=== PATIENT | female | born 1960 | race Caucasian/White ===

== ENCOUNTER 2020-10-25 18:41 | Emergency (ER) | payer OTHER ==
[~2020-10-25] VITALS: Ht 162.6 cm; Wt 60.5 kg
--- NOTE | 2020-10-25 19:21 | RAD ---
EXAM: 2 views left shoulder DATE: 10/25/2020 7:01 PM INDICATION: Reason: dislocation / Spl. Instructions: / History: COMPARISON: No Prior FINDINGS/ IMPRESSION: Anterior-inferior dislocation of the left shoulder. Equivocal anterior inferior Bankart type fracture not well profiled given overlap. Electronically signed by: Ash Knox MD (10/25/2020 7:18 PM) RITU
--- NOTE | 2020-10-25 20:14 | PHYS DOC ---
Past Medical History Past Medical History: Hypertension Past Surgical History: Other Additional Past Surgical Histo: RT SHOULDER, SINUS SURG Smoking Status: Never Smoker Alcohol Use: Heavy General Adult EDM: Chief Complaint: SHOULDER INJURY HPI: HPI: Patient is a 60 year old female patient who reports she had reached out to hug her dog when she had felt her shoulder dislocate. States she has had it happen before, it has been out for 2 hours prior to coming to the ER. States some discomfort. Denies paresthesia. Reports she is having some discomfort. Denies additional complaints or concerns. States this is the 4th time this has happened to her. Review of Systems: Review of Systems: Constitutional: Denies fever or chills. [] Cardiovascular: Denies chest pain or edema. [] GI: Denies abdominal pain, nausea, vomiting, bloody stools or diarrhea. [] : Denies dysuria. [] Musculoskeletal: Complains of pain to left shoulder and feeling it out of place [] Integument: Denies rash. [] Psychiatric: Denies depression or anxiety. [] Heart Score: Risk Factors: Risk Factors: DM, Current or recent (<one month) smoker, HTN, HLP, family history of CAD, obesity. Risk Scores: Score 0 - 3: 2.5% MACE over next 6 weeks - Discharge Home Score 4 - 6: 20.3% MACE over next 6 weeks - Admit for Clinical Observation Score 7 - 10: 72.7% MACE over next 6 weeks - Early Invasive Strategies Allergies: Allergies: Allergies Coded Allergies Type Severity Reaction Last Updated Verified No Known Drug Allergies 10/25/20 No Physical Exam: PE: Constitutional: Well developed, well nourished, no acute distress, non-toxic appearance. [] HENT: Normocephalic,oropharynx moist, no oral exudates, nose normal. [] Eyes: PERRLA, EOMI, conjunctiva normal, no discharge. [] Neck: Normal range of motion, no tenderness, supple, no stridor. [] Cardiovascular:Heart rate regular rhythm, no murmur [] Lungs & Thorax: Bilateral breath sounds clear to auscultation [] Skin: Warm, dry, no erythema, no rash. [] Back: No tenderness, no CVA tenderness. [] Extremities: No tenderness, no cyanosis, no clubbing, left shoulder with noted deformity/dislocation. Capillary refill intact, sensation intact, radial pulse intact. [] Neurologic: Alert and oriented X 3, normal motor function, normal sensory function, no focal deficits noted. [] Psychologic: Affect normal, judgement normal, mood normal. [] Current Patient Data: Vital Signs: Vital Signs Date Time Temp Pulse Resp B/P (MAP) Pulse Ox O2 Delivery O2 Flow Rate FiO2 10/25/20 18:45 97.8 77 16 183/118 (139) 97 Room Air 97.8 EKG: EKG: [] Radiology/Procedures: Radiology/Procedures: [] REASON: dislocation PROCEDURE: SHOULDER 2+V LEFT EXAM: 2 views left shoulder DATE: 10/25/2020 7:01 PM INDICATION: Reason: dislocation / Spl. Instructions: / History: COMPARISON: No Prior FINDINGS/ IMPRESSION: Anterior-inferior dislocation of the left shoulder. Equivocal anterior inferior Bankart type fracture not well profiled given overlap. Electronically signed by: Ash Parker MD (10/25/2020 7:18 PM) [facility] DICTATED and SIGNED BY: ASH PARKER MD DATE: 10/25/[id number] 0 Left shoulder 2 views: Reason for examination: Post reduction. Comparison is made to previous examination dated 10/25/2020 at 1908. The left humeral head is normally located at the glenoid. No acute fracture is seen. The bone density is normal. No abnormal periosteal reaction is seen. Joint space is maintained. IMPRESSION: Left humeral head normally located at the glenoid. No acute fracture evident. Electronically signed by: Paty Infante MD (10/25/2020 9:35 PM) [facility] DICTATED and SIGNED BY: PATY INFANTE MD DATE: 10/25/[id number] 0 Course & Med Decision Making: Course & Med Decision Making Pertinent Labs and Imaging studies reviewed. (See chart for details) []Using Ketamine for pain control, reduction of left shoulder dislocation using manipulation. Shoulder immobilizer applied following Post reduction films without fracture and noting shoulder in place. Patient to follow up with Ortho Keep immobilzer in place NSAIDS as needed for discomfort Prior to discharge, patient reporting she feels much better, states shoulder is a little achy. Will keep immobilizer in place and patient to follow up with Ortho. She has seen Ortho in the past for her shoulder, may see [facility] if she chooses. Layla Disclaimer: Layla Disclaimer: This electronic medical record was generated, in whole or in part, using a voice recognition dictation system. Departure Departure Impression: Primary Impression: Dislocation of left shoulder joint Qualified Codes: S43.005A - Unspecified dislocation of left shoulder joint, initial encounter Disposition: 01 DC HOME SELF CARE/HOMELESS Condition: STABLE Referrals: THU LESTER MD Patient Instructions: Shoulder Dislocation, Shoulder Immobilizer Additional Instructions: Follow up in the Orthopedics office to determine if they want to consider other ways to manage your recurring shoulder dislocation. Continue to wear the shoulder immobilizer for the next 7 days or until cleared by Orthopedics to remove it Take Tylenol or Ibuprofen as needed for discomfort Joint Reduction Procedure Joint Indication: Joint dislocation Consent: Consent was obtained. Procedure: The pre-reduction exam showed distal perfusion and neurologic function to be normal.. The patient was placed in the appropriate position. Anesthesia/pain control using Ketamine. Reduction of the Left Shoulder was performed by Manipulation and traction. Post reduction films were obtained and revealed satisfactory reduction. A post-reduction exam revealed distal perfusion and neurologic function to be normal. The affected area was immobilized with shoulder immobilizer The patient tolerated the procedure well. Complications: none. AME RAWLS APRN Oct 25, 2020 20:14
[2020-10-25] MEDS ORDERED: IV NORMAL SALINE 1000ML BAG 1,000 ML IV ONE (21:00)
[2020-10-25] MEDS ORDERED: ONDANSETRON PF 4 MG/2 ML VIAL. IV ONE (21:00)
[2020-10-25] MEDS ORDERED: KETAMINE HCL IN NACL, ISO-OSM 50 MG/5 ML SYRINGE IV ONE ×2 (21:00→22:00)
--- NOTE | 2020-10-25 21:38 | RAD ---
Left shoulder 2 views: Reason for examination: Post reduction. Comparison is made to previous examination dated 10/25/2020 at 1908. The left humeral head is normally located at the glenoid. No acute fracture is seen. The bone density is normal. No abnormal periosteal reaction is seen. Joint space is maintained. IMPRESSION: Left humeral head normally located at the glenoid. No acute fracture evident. Electronically signed by: Ayana Stallings MD (10/25/2020 9:35 PM) RHONDA
[2020-10-25 22:25] VITALS: BP 155/120
== END 2020-10-25 22:25 | disposition home or self-care (01) ==
LOC: ER 18:41
DX: S43.005A Unspecified dislocation of left shoulder joint, initial encounter (principal); I10 Essential (primary) hypertension; X58.XXXA Exposure to other specified factors, initial encounter; Y93.89 Activity, other specified; Y92.89 Other specified places as the place of occurrence of the external cause; Y99.8 Other external cause status
CPT/HCPCS: 23650; 73030; 96374; 99285; J2405; J7030; 96375; 96376

== ENCOUNTER → 2020-12-19 | Outpatient (CLI) | payer OTHER ==
[~2020-12-19] MED LIST: GADOTERATE 5 MMOL/10ML VIAL. INT ART ONE; IOHEXOL 300 MG/ML 50 ML VIAL. INT ART ONE; LIDOCAINE 1% Multi-Dose 20 ML VIAL. ID ONE
--- NOTE | 2020-12-19 15:26 | KCIC ---
EXAM: Left shoulder joint injection WITH Fluoroscopic guidance DATE: 12/19/2020 12:52 PM CLINICAL HISTORY: RECURRENT DISLOCATIONS OF LEFT SHOULDER COMPARISON: None pertinent TECHNIQUE: The patient was informed of the indications and alternatives for this procedure as well as risks and benefits. No immediate contraindication identified. The patient provided informed, written consent. Laterality was confirmed by the entire team following a time out. Following initial left shoulder joint localization, a suitable area was sterilely prepped and draped. Local anesthesia was administered with 1% xylocaine. With intermittent fluoroscopic observation, a 2 2-gauge spinal needle was advanced into the left shoulder sheath/capsule with confirmation of intra-s ynovial position with infusion of less than 1 cc iodinated contrast. Subsequent infusion 12 mL soluti on containing 10 cc saline, 5 cc lidocaine 1%, 5 cc Isovue and 0.1 cc gadolinium. Hemostasis with loc al pressure. Local clinical exam negative for immediate complication. Patient informed re local potential signs or symptoms that may indicate need to return to ER/Ordering physician for further evaluation. Patient informed re precautionary measures after intra-synovial in jection of anesthetic. Patient expressed understanding. Performing Physicians: Dr. Martina Knox Blood Loss: 0 cc Total Fluoroscopy time: 7 seconds Total spot images taken: 0 Total number of images saved: 2 IMPRESSION: Successful intra-synovial injection of the left shoulder with gadolinium contrast per clinical reque st. Electronically signed by: Ash Knox MD (12/19/2020 3:24 PM) [id number]
--- NOTE | 2020-12-19 15:37 | KCIC ---
EXAM: MRI arthrogram Left shoulder DATE: 12/19/2020 1:48 PM COMPARISON: None INDICATION: RECURRENT DISLOCATIONS OF LEFT SHOULDER TECHNIQUE: Multiplanar, multisequence MRI arthrogram of the Left shoulder was performed without contr ast. FINDINGS: Iatrogenic distention of the left glenohumeral joint with gadolinium contrast. No significant subacro mial-subdeltoid bursal fluid. AC joint is congruent. No os acromiale. Partial-thickness articular sided tear of the supraspinatus tendon measures approximately 1.5 cm in A P dimension, approximately 50 percent tendon thickness. The rotator cuff is otherwise intact. Rotator cuff muscle signal and bulk is normal without fatty atrophy. Hill-Sachs deformity is seen. Mild deformity of the anterior-inferior labrum although discrete tear i s not identified. In addition contrast is seen extending through the labral-chondral junction within the superior and posterior superior labrum consistent with SLAP tear from approximately the 12:00 pos ition to the 9:00 position. No fracture or osteonecrosis. Articular cartilage is grossly preserved. Intra-articular and extra-art icular long head biceps tendon are intact. IMPRESSION: 1. SLAP tear is suspected from the 12:00-9:00 position. 2. Partial-thickness articular sided tear of the anteriormost fibers of the supraspinatus tendon. 3. Deformity of the anterior-inferior labrum without discrete anterior-inferior labral tear. 4. Hill-Sachs deformity is seen from prior shoulder dislocation. Electronically signed by: Ash Knox MD (12/19/2020 3:35 PM) [id number] Custom Field 1 Laterality
== END | disposition home or self-care (01) ==
LOC: KCIC 12:39
PROVIDERS: ATTEND Orthopaedic Surgery
DX: M24.412 Recurrent dislocation, left shoulder (principal); M24.112 Other articular cartilage disorders, left shoulder; S43.432A Superior glenoid labrum lesion of left shoulder, initial encounter; S42.292A Other displaced fracture of upper end of left humerus, initial encounter for closed fracture; X58.XXXA Exposure to other specified factors, initial encounter; Y93.89 Activity, other specified; Y92.89 Other specified places as the place of occurrence of the external cause; Y99.8 Other external cause status
CPT/HCPCS: 23350; 73222; 77002; A9575; J3490; Q9967; 73040

== ENCOUNTER → 2021-01-10 | Outpatient (CLI) | payer OTHER ==
[~2021-01-10] MED LIST changes: +AMLO-187 PO; +FISH400C4 PO; -GADOTERATE 5 MMOL/10ML VIAL. INT ART ONE; +IBUP-1027 PO; -IOHEXOL 300 MG/ML 50 ML VIAL. INT ART ONE; -LIDOCAINE 1% Multi-Dose 20 ML VIAL. ID ONE; +MULT-121 PO; +[UNRECOGNIZED DRUG - OTHER] PO
== END ==
LOC: LAB 09:40
PROVIDERS: ATTEND Orthopaedic Surgery
DX: Z01.812 Encounter for preprocedural laboratory examination (principal); S43.432A Superior glenoid labrum lesion of left shoulder, initial encounter; M24.412 Recurrent dislocation, left shoulder; Z20.822 Contact with and (suspected) exposure to COVID-19; X58.XXXA Exposure to other specified factors, initial encounter; Y93.89 Activity, other specified; Y92.89 Other specified places as the place of occurrence of the external cause; Y99.8 Other external cause status
CPT/HCPCS: U0003

== ENCOUNTER 2021-01-13 07:09 | Day surgery (SDC) | payer OTHER ==
[~2021-01-13] VITALS: Ht 160 cm; Wt 63.5 kg
[~2021-01-13 07:09] MED LIST changes: +HYDROmorphone 2 MG/ML VIAL IVP PRN; +IV RINGERS,LACTATED 1000ML 1,000 ML IV SCH; +MORPHINE SULFATE 2 MG/ML VIAL. IVP PRN; +PROCHLORPERAZINE 10 MG/2 ML VIAL. IVP PRN; +ceFAZolin SODIUM IV Push 1 GM VIAL. IVP PRN; +fentaNYL PF VIAL 100 MCG/2 ML VIAL IVP PRN
[2021-01-13] MEDS ORDERED: ROCURONIUM 50 MG/5 ML VIAL. ONE (07:34)
[2021-01-13] MEDS ORDERED: PROPOFOL 10 MG/ML (20ML) VIAL. IV ONE (07:34)
[2021-01-13] MEDS ORDERED: LIDOCAINE 2% PF 5 ML VIAL. ONE (07:34)
[2021-01-13] MEDS ORDERED: fentaNYL PF VIAL 100 MCG/2 ML VIAL ONE ×2 (07:34→09:00)
--- NOTE | 2021-01-13 08:07 | PDOC1 ---
History and Physical Date of Admission Date of Admission DATE: 01/13/21 TIME: 08:01 Identification/Chief Complaint Chief Complaint Left shoulder recurrent dislocation. Source Source: Chart review, Patient History of Present Illness History of Present Illness 60-year-old with left shoulder pain. 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 History of left frozen shoulder with manipulation with Dr. Villatoro about 10 years ago. Following this, she had some type of complication from her frozen shoulder as her scapula was deformed; this took 2 years of physical therapy. Eventually, she healed to 100% and regained motion without any dislocations. However, she has began dislocating over the past 1.5 years (first episode throwing the ball for her dog where she self reduced). She has followed up with other physicians, including one in [place] (Dr. Schreiber?), who ordered a test (possible MRI with contrast?) and prescribed physical therapy about 8 months ago. Patient did fine until October of this year. She was seen in the ED on 10/25/20 for a left shoulder dislocation after reaching down to hug her dog. She was reduced in the ER, given an immobilizer, and instructed to follow up with me. Of note, her shoulder was dislocated for about 3 hours before her reduction. She was also given ketamine during her reduction and this was very scary for her. This was her 4th episode of dislocation over the past 1.5 years and she has previously followed up with [facility], among others, for her shoulder. Now, she notes aching and pain in her shoulder, worse at night. MRI shows SLAP tear from the 12:00-9:00 position, partial-thickness articular sided tear of the anteriormost fibers of the supraspinatus tendon, deformity of the anterior-inferior labrum without discrete anterior-inferior labral tear, and Hill-Sachs deformity is seen from prior shoulder dislocation. Past Medical History Cardiovascular: HTN Past Surgical History Past Surgical History Shoulder manipulation. Sinus surgery. Family History Family History: Hypertension Social History Smoke: Quit ALCOHOL: occassional Current Medications Current Medications Current Medications Fentanyl Citrate (Fentanyl 2ml Vial) 25 mcg PRN Q5MIN PRN IVP MILD PAIN 1-3; Start 01/13/21 at 06:00; Stop 01/14/21 at 05:59 Fentanyl Citrate (Fentanyl 2ml Vial) 50 mcg PRN Q5MIN PRN IVP MODERATE PAIN 4- 6; Start 01/13/21 at 06:00; Stop 01/14/21 at 05:59 Morphine Sulfate (Morphine Sulfate) 1 mg PRN Q10MIN PRN IVP SEVERE PAIN 7-10; Start 01/13/21 at 06:00; Stop 01/14/21 at 05:59 Ringer's Solution 1,000 ml @ 30 mls/hr Q24H IV ; Start 01/13/21 at 06:00; Stop 01/13/21 at 17:59 Hydromorphone HCl (Dilaudid) 0.5 mg PRN Q10MIN PRN IVP SEVERE PAIN 7-10, 2nd CHOICE; Start 01/13/21 at 06:00; Stop 01/14/21 at 05:59 Prochlorperazine Edisylate (Compazine) 5 mg PACU PRN PRN IVP NAUSEA, MRX1; Start 01/13/21 at 06:00; Stop 01/14/21 at 05:59 Cefazolin Sodium (Ancef) 1 gm 1X PREOP PRN IVP PRIOR TO PROCEDURE; Start at 06:00 Fentanyl Citrate (Fentanyl 2ml Vial) 100 mcg STK-MED ONCE .ROUTE ; Start 01/13/21 at 07:34; Stop 01/13/21 at 07:35; Status DC Propofol (Diprivan) 200 mg STK-MED ONCE IV ; Start 01/13/21 at 07:34; Stop 01/13/21 at 07:35; Status DC Lidocaine HCl (Lidocaine Pf 2% Vial) 5 ml STK-MED ONCE .ROUTE ; Start 01/13/21 at 07:34; Stop 01/13/21 at 07:35; Status DC Rocuronium Hamilton (Zemuron) 50 mg STK-MED ONCE .ROUTE ; Start 01/13/21 at 07:34; Stop 01/13/21 at 07:35; Status DC Cefazolin Sodium/ Dextrose 50 ml @ As Directed STK-MED ONCE IV ; Start 01/13/21 at 07:35; Stop 01/13/21 at 07:35; Status DC Active Scripts Active Reported [Super Red Supplement] 1 Cap PO DAILY [place] 3-6-9 Complex Softgel (Fish Oil/Borage/Flax/Om3,6,9#1) 400 Mg Capsule 1 Cap PO DAILY 30 Days Multiple Vitamins (Multivitamin) 1 Each Tablet 1 Each PO DAILY Ibuprofen 400 Mg Tablet 400 Mg PO PRN Q6HRS PRN Amlodipine Besylate 10 Mg Tablet 10 Mg PO HS Allergies Allergies: Coded Allergies: ketamine (Verified Adverse Reaction, Intermediate, 01/12/21) "FREAKED OUT!" DOESNT WANT TO RECEIVE AGAIN ROS Review of System OPHTHALMOLOGY: Blurred vision none. Double vision denies. Change in vision none. ENT: Hearing loss none. Change in voice denies. Rhinorrhea none. CARDIOLOGY: Palpitations none. Shortness of breath denies. Chest pain denies. CONSTITUTIONAL: Fever denies. Chills denies. Weight gain denies. Weakness none. weight loss denies. Fatigue none. GASTROENTEROLOGY: Diarrhea denies. Vomiting none. Dysphagia none. UROLOGY: Voiding normally yes. Hematuria none. MUSCULOSKELETAL: Chronic back or neck pain denies. Swelling of the feet, hands, ankles and /or legs denies. Joint pain admits. Tingling/numbness no. DERMATOLOGY: Rash denies. Lumps none. NEUROLOGY: Dizziness/lightheadedness denies. Double vision, temporary blindness denies. Tingling/numbness none. PSYCHOLOGY: Change in mood or personality denies. Memory loss none. ENDOCRINOLOGY: Obesity denies. Fatigue none. Weight loss none. HEMATOLOGY/LYMPH: Hepatitis denies. Enlarged lymph nodes denies. Physical Exam General: Alert, Cooperative HEENT: Atraumatic Lungs: Normal air movement Abdomen: Soft Extremities: No edema, Normal pulses, Other ( Gross alignment of the LEFT shoulder is normal. Strength is 5/5 for the supraspinatus and infraspinatus. No apparent hypermobility or generalized ligamentous laxity of her other joints. Anterior instability on apprehension and relocation testing. Slight inferior instability. No posterior instability. Range of motion is 120/170/50/L2 (cautious to prevent any dislocation). Skin, pulses, and sensation normal. ) Skin: No breakdown, No significant lesion Neuro: Sensation intact Psych/Mental Status: Mental status NL, Mood NL Images Images [facility] [address] [place] [address] IMAGING REPORT Signed PATIENT: CHEIKH BURTON ACCOUNT: [id number] : 1960 LOCATION: [facility] AGE: 60 SEX: F EXAM STATUS: REG CLI ORD. PHYSICIAN: THU LESTER MD REASON: RECURRENT DISLOCATIONS OF LEFT SHOULDER PROCEDURE: UPPER EXT JOINT W CONT LEFT EXAM: MRI arthrogram Left shoulder DATE: 12/19/2020 1:48 PM COMPARISON: None INDICATION: RECURRENT DISLOCATIONS OF LEFT SHOULDER TECHNIQUE: Multiplanar, multisequence MRI arthrogram of the Left shoulder was performed without contrast. FINDINGS: Iatrogenic distention of the left glenohumeral joint with gadolinium contrast. No significant subacromial-subdeltoid bursal fluid. AC joint is congruent. No os acromiale. Partial-thickness articular sided tear of the supraspinatus tendon measures approximately 1.5 cm in AP dimension, approximately 50 percent tendon thickness. The rotator cuff is otherwise intact. Rotator cuff muscle signal and bulk is normal without fatty atrophy. Hill-Sachs deformity is seen. Mild deformity of the anterior-inferior labrum although discrete tear is not identified. In addition contrast is seen extending through the labral-c hondral junction within the superior and posterior superior labrum consistent with SLAP tear from approximately the 12:00 position to the 9:00 position. No fracture or osteonecrosis. Articular cartilage is grossly preserved. Intra- articular and extra- articular long head biceps tendon are intact. IMPRESSION: 1. SLAP tear is suspected from the 12:00-9:00 position. 2. Partial-thickness articular sided tear of the anteriormost fibers of the supraspinatus tendon. 3. Deformity of the anterior-inferior labrum without discrete anterior- inferior labral tear. 4. Hill-Sachs deformity is seen from prior shoulder dislocation. Electronically signed by: Ash Parker MD (12/19/2020 3:35 PM) [id number] Custom Field 1 Laterality DICTATED and SIGNED BY: ASH PARKER MD DATE: 12/19/20 1524 VTE Prophylaxis Ordered VTE Prophylaxis Devices: Yes VTE Pharmacological Prophylaxi: Yes Assessment/Plan Assessment/Plan Her MRI shows a SLAP tear as well as a partial supraspinatus tear. We reviewed her report together and discussed the natural history of the condition as well as risks, benefits, and alternatives to treatment. Given her failure of more conservative measures with continued recurrent dislocations, my recommendation is surgery. Plan for left shoulder arthroscopy with SLAP repair, rotator cuff repair, and subacromial decompression. We discussed the potential risks of infection, neurovascular injury, fracture, bleeding, need for revision surgery, or other potential surgical or anesthetic complications. We also discussed healing expectations including postoperative use of DonJoy sling, need for physical therapy, and refrain from overhead lifting for 3 months. In addition, I described that this is a more difficult surgery for patients and may take up to a year to heal; furthermore, I impressed the possibility of postoperative stiffness after undergoing these two procedures. All of her questions were answered and she desires to proceed with surgery. Justifications for Admission Other Justification THU LESTER MD Jan 13, 2021 08:07
[2021-01-13] MEDS ORDERED: BUPIVACAINE-EPI 0.25% 30 ML VIAL KIT. ONE (08:13)
[2021-01-13] MEDS ORDERED: EPINEPHrine VIAL 30 MG/30 ML VIAL ONE (08:13)
[2021-01-13] MEDS ORDERED: DEXAMETHASONE SOD PHOS 4 MG/ML VIAL ONE (08:59)
[2021-01-13] MEDS ORDERED: SEVOFLURANE 61 TO 120 MINUTES. IH ONE (09:00)
[2021-01-13] MEDS ORDERED: ceFAZolin SODIUM IV Push 1 GM VIAL. IVP ONE (09:15)
[2021-01-13] MEDS ORDERED: HYDROmorphone 2 MG/ML VIAL ONE (09:22)
[2021-01-13] MEDS ORDERED: GLYCOPYRROLATE 1 MG/5 ML VIAL. ONE (10:58)
[2021-01-13] MEDS ORDERED: NEOSTIGMINE METHYLSULFATE 5 MG/5 ML SYRINGE. ONE (10:58)
--- NOTE | 2021-01-13 11:55 | PDOC4 ---
Operative Note Operative Note Date of Procedure: January 13, 2021 Pre-Op Diagnosis: 1. Recurrent dislocation, left shoulder - M24.412 2. Incomplete rotator cuff tear or rupture of left shoulder, not specified as traumatic - M75.112 Post-Op Diagnosis: 1. Recurrent dislocation, left shoulder - M24.412 2. Incomplete rotator cuff tear or rupture of left shoulder, not specified as traumatic - M75.112 Procedure: 1. Left shoulder arthroscopy with surgical capsulorrhaphy (arthroscopic Bankart repair) CPT 49876 2. Left shoulder repair of ruptured musculotendinous cuff (open rotator cuff repair), open and acute CPT 86923 Surgeon: Thu Byrd MD Head Turning Machine Operator: XOCHITL Mendoza Anesthesia: General EBL: 75 mL Specimens Obtained: none Complications: none Drains: none Indications for Procedure: This patient is a 60-year-old with recurrent dislocations of the left shoulder. MRI shows a Bankart and/or SLAP tear, as well as rotator cuff tearing. She also has a Hill-Sachs lesion. She and I discussed options for treatment. My recommendation is arthroscopy, possible subacromial decompression, rotator cuff repair, other procedures if indicated. We talked about the potential risks of stiffness, recurrent dislocation, bleeding, infection, neurovascular injury, or other potential surgical or anesthetic complications. All of her questions about surgery were answered and she desired to proceed. Written consent was obtained. Procedure in Detail: The patient was identified in the preoperative holding area. The correct left shoulder was marked by me. She was taken to the operating room where a general anesthetic was used. Preoperative antibiotics were given intravenously. A timeout procedure was performed. The patient was positioned laterally on a beanbag with the bony prominences well-padded. The arm was suspended on an overhead traction tower with 10 pounds of traction weight, increased intraoperatively to 15 pounds for better visualization. Under sterile technique local anesthetic with epinephrine was injected into the subacromial bursa and into the glenohumeral joint. The limb was prepared circumferentially with ChloraPrep solution and sterile waterproof arthroscopy drapes were applied. Posterior posterior lateral lateral and anterior arthroscopy portals were used. An anterior working cannula was inserted. The glenohumeral joint showed extensive anterior labral tear and instability anteriorly and inferiorly. The SLAP tear was more of a degenerative finding, fairly mild and not acute, and did not seem to warrant a repair as there was minimal if any instability of the superior labrum. The biceps tendon was intact and appears normal. There is a Hill-Sachs lesion however it is a nonengaging lesion, so arthroscopic Bankart stabilization seems appropriate. There is no bony defect of the glenoid. The subscapularis tendon was intact. There is high-grade undersurface partial-thickness rotator cuff tearing and ultimately a marker suture was placed in that location for later rotator cuff repair. My assistant front end manager helped elevate the arm for good exposure of the glenohumeral joint and anterior labrum and anterior band of the inferior glenohumeral ligament. I prepared the anterior glenoid neck at the labral attachment, first by completely releasing the labrum using the tissue liberator device. I used a motorized bur to make a bleeding footprint along the anterior articular margin. The shaver was used to remove the bony debris and any degenerative fragments of the remaining labrum. She has marked anterior instability in the shoulder is nearly fully dislocated with traction weight. I then did an arthroscopic suture anchor Bankart repair starting inferiorly and working superiorly, and placing 4 suture anchors. Each of these was placed in a similar fashion at approximately 7:00, 8:30,10:00 and 11:30 on the left shoulder. I used the Arthrex fiber tack sutures, and while visualizing arthroscopically I placed the dedicated cannula. The dedicated drill was used to make an entry hole at the anterior glenohumeral articular margin, drilling into the glenoid. The suture anchor was deployed with good anchor security by tensioning the anchor firmly after it was deployed. I then used the Spectrum soft tissue repair set to shuttle Prolene suture for passing of one of the anchor suture tails. Each time the speculum was used I grasped 2 bites of tissue, for plication of the anterior capsule, and tightened the anterior capsule where it probably had been stretched in what can be called a Perthes capsule lesion. The first shuttling suture was placed through the anterior band of the inferior glenohumeral ligament with the first bite, and then the second bite was underneath the labrum at the 7 o'clock position, drying the capsular tissue from superior to inferior. I then used the Prolene suture to shuttle one of the anchor suture limbs through the tissue, and back out the working cannula. I then had my assistant front end manager hold the shoulder in a more reduced position superiorly and posteriorly, while I tied the knot. Used a double sliding knot followed by reversed half hitches with reversed posts, all tied under direct arthroscopic vision for good knot security. The knot was trimmed and then my assistant front end manager was allowed to release the reduction maneuver. Even with the first suture the shoulder became better reduced into the glenohumeral joint. I placed 3 additional suture anchors, and exactly the same fashion, reducing the shoulder as the sutures were tied and achieving a nice stable glenohumeral reduction and Bankart repair. I then placed the arthroscope into the subacromial space. There does not seem to be extensive impingement so I did not feel a subacromial decompression was warranted. There is bursitis and I left that bursa for excision when I opened the shoulder. Outer gloves were changed. Antibiotics were redosed. The skin was prepared a second time with ChloraPrep. An anterolateral deltoid raphae splitting incision was used. A Weitlaner retractor was placed. Care was made not to extend more than 4 cm distal to the acromion to prevent axillary nerve injury. The marker suture placed previously was now located. Excess bursa was excised with scissors. There was a high-grade partial-thickness cuff tear. The arm was taken out of traction and rewrapped in a sterile stockinette, so that the cuff tear was not performed under any excess tension. I completed the tear with a 15 blade scalpel although there was only a thin remnant perhaps 1 mm of remaining intact cuff. This was now a full-thickness tear with a 16mm footprint at the supraspinatus insertion. I decorticated the bone with a rongeurs to make a healthy bleeding "crimson duvet" for eventual reattachment of the supraspinatus tendon to the bone. I did an Arthrex speed bridge repair in a 2 x 2 pattern w ith 2 medial row anchors and 2 lateral row anchors at the 4 corners of the footprint. I used the smallest available bone punch and her bone is fairly soft. The 2 medial row anchors were deployed, and then the mattress sutures were deployed followed by the speed bridge tapes. The medial row sutures were tied, using a ripstop pattern to prevent the tapes from tearing through the t issue. The tapes were now crossed and the 2 Lateral Row anchors were deployed in the cortex, with satisfactory purchase using the smallest bone punch but her bone quality is not impressive. I was able to place the punch into the cortex with minimal mallet usage. I carefully examined the anchor purchase, and there was slight squeaking with insertion of the anchors but I double check to make sure they were secure at the end of the case. I did not use any of the dog ear sutures so that there was not any excess tension on the anchors. There were no dogears. Copious saline irrigation was used. The arthroscopic camera was used to take final photographs of the repair. The arm was taken through range of motion and there is good security throughout the range of motion with no excess tension. Copious saline irrigation was used a final time. The deltoid fascia was repaired by me with 0 Vicryl suture. My assistant front end manager closed the subcutaneous tissues with #2-0 Vicryl. He repaired the portals with #3-0 Prolene. He repaired the skin incision with #3-0 STRATAFIX Monocryl. Needle and sponge counts were correct. There were no apparent complications. We injected an additional 30 mL of 0.25% bupivacaine with epinephrine. A DonJoy UltraSling will be used. I will use a rotator cuff repair protocol but keep the external rotation limits as for a typical Bankart repair protocol. THU BYRD MD Jan 13, 2021 11:55
[2021-01-13] MEDS ORDERED: OXYC-325 PO (12:20)
[2021-01-13] MEDS ORDERED: PROM25TA10 PO (12:21)
[2021-01-13 12:29] VITALS: BP 109/71
[2021-01-13] MEDS ORDERED: oxyCODONE/APAP 5/325 1 TAB TABLET PO PRN ×3 (12:30→12:45)
[2021-01-13] MEDS ORDERED: MORPHINE SULFATE 2 MG/ML VIAL. ONE (12:33)
[2021-01-13] MEDS ORDERED: PROCHLORPERAZINE 10 MG/2 ML VIAL. ONE (12:33)
== END 2021-01-13 13:05 | disposition home or self-care (01) ==
LOC: SURG 07:09
PROVIDERS: ATTEND Orthopaedic Surgery
DX: M24.412 Recurrent dislocation, left shoulder (principal); M75.112 Incomplete rotator cuff tear or rupture of left shoulder, not specified as traumatic; I10 Essential (primary) hypertension; Z87.891 Personal history of nicotine dependence; Z98.890 Other specified postprocedural states; Z72.89 Other problems related to lifestyle; Z88.8 Allergy status to other drugs, medicaments and biological substances
CPT/HCPCS: 23410; 29806; J0171; J0690; J0780; J1100; J1170; J2270; J2704; J2710; J3010; J3490; C1713